=== PATIENT | female | born 1955 | race Caucasian/White ===

== ENCOUNTER 2024-10-07 06:19 | Inpatient (IN) | payer OTHER ==
[~2024-10-07] VITALS: Ht 147.3 cm; Wt 70.5 kg
[2024-10-07] VITALS (12 sets, daily range): BP systolic 101–128; BP diastolic 44–77; PULSE 83–98; RESP 12–19; TEMP 97.4–98.2; O2SAT 92–98
[~2024-10-07 06:19] MED LIST: ALBU108A5 IN; ALPH300C PO; AMLO1TAB22 PO; BECL40AE11 IN; GABA-1250 PO; LEVO125T7 PO; LOVA20TA4 PO; NAPR-746 PO; OMEG100062 PO
[2024-10-07] MEDS: BUPIVACAINE 0.25% INJ 50ML VIAL ONE (06:57)
[2024-10-07] MEDS: BUPIVACAINE W/ EPINEPH 0.5% INJ 50ML MDV IJ ONE (06:57)
[2024-10-07] MEDS: KETOROLAC TROMETH 30 MG/ML 1ML VIAL ONE (06:59)
[2024-10-07] MEDS: BUPIVACAINE 0.5% P/F INJ 10 ML VIAL ONE (07:09)
[2024-10-07] MEDS ORDERED: ONDANSETRON HCL 4 MG/2 ML VIAL ONE (07:10)
[2024-10-07] MEDS ORDERED: fentaNYL CITRATE 100 MCG/2 ML VL ONE (07:10)
[2024-10-07] MEDS ORDERED: GLYCOPYRROLATE 0.2 MG/ML 1ML VIAL ONE (07:10)
[2024-10-07] MEDS ORDERED: MORPHINE SULF PF 5 MG/10 ML VIAL ONE (07:10)
[2024-10-07] MEDS ORDERED: KETOROLAC TROMETH 30 MG/ML 1ML VIAL ONE (07:10)
[2024-10-07] MEDS ORDERED: PROPOFOL 10 MG/ML 20 ML IV ONE (07:10)
[2024-10-07] MEDS ORDERED: MIDAZOLAM HCL 2MG/2ML 2ml VIAL (1mg/ml) ONE (07:11)
[2024-10-07] MEDS ORDERED: HYDROCORTISONE SOD SUCC 100 MG/2ML INJ VIAL ONE (07:11)
[2024-10-07] MEDS: ceFAZolin 2 GM/D5W100ml 100 ML IV ONE (07:37)
[2024-10-07] MEDS: CEFEPIME 1GM/ 50ML 50 ML IV ONE (07:39)
[2024-10-07] MEDS: TRANEXAMIC ACID 20 ML ONE (07:42)
[2024-10-07] MEDS: VANCOMYCIN HCL 1000 MG VL ONE (08:40)
--- NOTE | 2024-10-07 08:42 | DVH ---
CLINICAL INDICATION: SURGERY TECHNIQUE: XY L HIP 1V XRAY Comparison: None FINDINGS/IMPRESSION: : Intraoperative left hip arthroplasty.
[2024-10-07] MEDS: NALBUPHINE HCL 10 MG/1ml INJECTION SUBCUT ONE (09:15)
[2024-10-07] MEDS ORDERED: ONDANSETRON HCL 4 MG/2 ML VIAL IV PRN ×2 (09:15)
[2024-10-07] MEDS ORDERED: DexAMETHasone SOD PHOS 10MG/1ML VIAL INJ IV PRN (09:15)
[2024-10-07] MEDS ORDERED: NALOXONE HCL 0.4 MG/ML VIAL IV PRN (09:15)
[2024-10-07] MEDS ORDERED: KETOROLAC TROMETH 30 MG/ML 1ML VIAL IV PRN (09:15)
[2024-10-07] MEDS ORDERED: diphenhdrAMINE HCL 50 MG/1 ML VL IV PRN (09:15)
--- NOTE | 2024-10-07 09:15 | DVHOP2 ---
Operative Report - 2 Report Details Date: 10/07/24 Preop Diagnosis: Left hip degenerative arthritis Postop Diagnosis: Left hip degenerative arthritis Surgeon: Yogi Menezes MD Anesthesiologist: Sunny Anesthesia: Regional Drains: Aba closed wound suction Implant: DonJoy origin stem size 10, minus four neck length, size 32 ceramic head, 46 acetabular shell with flat liner polyethylene Consent: The patient was informed of the risks and benefits of the procedure. These include but are not limited to complications of anesthesia, postoperative infection, incomplete relief of symptoms, recurrence of symptoms, damage to blood vessels, nerves and tendons, deep venous thrombosis, pulmonary embolism and possible need for repeat surgery in the future. Complications: None Estimated Blood Loss: 200 cc Fluids: See anesthesia record Findings: Severe loss of range of motion with severe flexion contracture left hip, osteophytes, denuded cartilage with eburnated bone Indications for Surgery: Left hip degenerative arthritis with severe pain and functional impairment despite adequate nonoperative management Name of Procedure Performed Left total hip arthroplasty Procedure Details Procedure Details: The patient was brought to the operating room and given spinal anesthetic with adequate analgesia obtained. The patient was positioned lateral decubitus with the operative side up, stabilized with hip positioners. Axillary roll applied and lower extremities well-padded. Preop patient received IV Ancef, cefepime and IV tranexamic acid. Surgical timeout was performed verifying patient, laterality and procedure. The hip and lower extremity were prepped and draped in sterile fashion. Incision was made over the greater trochanter. Subcutaneous dissection and hemostasis were performed with Bovie and aqua mantis. I identified the fascia which was incised with Bovie and Charnley retr actor inserted. I identified the gluteus medius that was split at the junction of its anterior and middle thirds with Bovie then incised off the anterior greater trochanter. I incised the anterior gluteus minimus which was elevated off the capsule. I elevated the reflected head of the rectus. I then performed anterior capsulectomy with Bovie. I extended capsular incision posterior medially and superior laterally. The head was dislocated. Femoral neck cut was made with saw and head removed. Head diameter was calipered on the back table. I adjusted retractors to expose the acetabulum. I circumferentially removed labral tissue with Bovie. I removed foveal tissue with Bovie, curette and rongeur. I then began reaming sequentially paying attention to inclination and version as I went. I trialed which was stable so acetabular implant was brought into the field and tapped into the acetabulum with good fixation achieved. I then brought up the flat liner which was spun to make sure there was no soft tissue entrapment then tapped in and stability verified. I then brought my attention to the proximal femur. The leg was placed in the sterile bag anteriorly. I cleaned up soft tissue at the greater trochanter shoulder with Bovie. I then used a rongeur to clip the lateral neck. I then used a box osteotome, canal finder and lateralizing rasp. I sequentially broached to size 10. Hip was stable on trialing. Intraoperative AP pelvis x-ray was obtained to verify length, offset and implant size. The hip was dislocated. I went down a size and broach and buried it then buried the size 10 and was able to short in the neck length and this way based on estimated length from the x-ray. I then used a calcar planer. Broach was removed and I tapped in the stem with e xcellent fixation achieved. I again trialed and decided on the minus four neck length I cleaned and dried the Ribeiro taper and tapped on the head and reduced the hip which was stable on testing. I irrigated with antibacterial irrigant. I placed a 2 grams of vancomycin in the deep and superficial wound. I repaired the minimus and medius to the anterior greater trochanter with #[5] FiberWire in running fashion . I oversewed the repair with 0 Vicryl. I repaired the fascia with #1 Ethibond interrupted [id number]. Deep subcutaneous tissue was closed with 0 Vicryl. Superficial subcutaneous tissue was closed with 2-0 Vicryl. The skin was closed with santos. I then applied the Aba closed wound suction. Patient tolerated the procedure well and was brought to the recovery room in stable condition. Condition Stable Disposition Still a Patient YOGI MENEZES MD Oct 07, 2024 09:15
--- NOTE | 2024-10-07 09:42 | DVH ---
CLINICAL INDICATION: postop TECHNIQUE: XY PELVIS AP Comparison: None FINDINGS/IMPRESSION: : There is no evidence of acute fracture or dislocation. Left hip arthroplasty. Severe degenerative changes of the right hip.
[2024-10-07] MEDS: ALBUTEROL SULF HFA 90MCG INH 200DOSE IN SCH (10:00)
[2024-10-07] MEDS: amLODIPine BESYLATE 5 MG TAB PO SCH (10:00)
[2024-10-07] MEDS ORDERED: oxyCODONE HCL 5MG TAB PO PRN (11:30)
[2024-10-07] MEDS ORDERED: KETOROLAC TROMETH 30 MG/ML 1ML VIAL IV SCH (12:00)
[2024-10-07] MEDS ORDERED: KETAMINE 50mg/ML 1ml syringe IV ONE (12:53)
[2024-10-07] MEDS: HYDROCORTISONE SOD SUCC 100 MG/2ML INJ VIAL IV SCH (13:53)
[2024-10-07] MEDS: ACETAMINOPHEN 325 MG TAB PO SCH (13:53)
[2024-10-07] MEDS: ceFAZolin 2 GM/D5W50ml 50 ML IV SCH (13:53)
[2024-10-07] MEDS: SODIUM CHLORIDE 0.9% 1,000 ML IV SCH (13:56)
[2024-10-07] MEDS: GABAPENTIN 300 MG CAP PO SCH (14:15)
[2024-10-07] MEDS ORDERED: ALBUTEROL SULF 2.5 MG/0.5ML(0.5%) NEB SOLN NEB PRN (15:15)
[2024-10-08] VITALS (17 sets, daily range): BP systolic 98–132; BP diastolic 60–74; PULSE 85–116; RESP 16–18; TEMP 98–99.3; O2SAT 91–100
[2024-10-08] MEDS: LEVOTHYROXINE SODIUM 25 MCG TAB PO SCH (06:53)
[2024-10-08] MEDS: LEVOTHYROXINE SODIUM 100 MCG TAB PO SCH (06:53)
[2024-10-08] MEDS ORDERED: PATIENTS OWN MEDICATION (Levothyroxine Sodium 125 MCG) PO SCH (07:00)
[2024-10-08 07:16] LABS: Basophils # (auto) 0 10 ^3/uL (0-0.2); Basophils % (auto) 0.2 % (0.0-2.0); Eosinophils # (auto) 0 10 ^3/uL (0-0.8); Lymphocytes # (auto) 0.6 10 ^3/uL (0.4-5.4); Lymphocytes % (auto) 5.3 % (10.0-50.0); Mean Corpuscular Hemoglobin 28.4 pg (28.0-32.0); Mean Corpuscular Hgb Conc. 34.2 g/dL (32.0-36.0); Monocytes # (auto) 0.6 10 ^3/uL (0-1.3); Monocytes % (auto) 5.9 % (0.0-12.0); Neutrophils # (auto) 9.5 10 ^3/uL (1.6-8.6); Neutrophils % (auto) 88.6 % (37.0-80.0); Platelet Count (auto) 196 10^3/uL (140-450); Red Blood Cells 2.41 10^6/uL (4.0-5.20); Red Cell Distribution Width 13.4 % (11.8-14.3); White Blood Cell 10.8 10^3/uL (4.4-10.8)
[2024-10-08 07:18] LABS: Chloride 107 mmol/L (98-107); Potassium 3.9 mmol/L (3.5-5.1); Sodium 139 mmol/L (136-145)
[2024-10-08 07:19] LABS: Anion Gap 7 (5-15); Carbon Dioxide 25 mmol/L (20-31)
[2024-10-08 07:22] LABS: Hemoglobin 6.8 g/dL (12.2-16.2)
[2024-10-08 07:23] LABS: Calcium 7.9 mg/dL (8.7-10.4)
[2024-10-08 07:24] LABS: BUN/Creatinine Ratio 23.6 (10.0-20.0); Blood Urea Nitrogen 17 mg/dL (9-23)
[2024-10-08 07:26] LABS: Glucose 130 mg/dL (74-106)
[2024-10-08] MEDS: oxyCODONE HCL 5MG TAB PO PRN (09:51)
[2024-10-08 10:12] LABS: Basophils # (auto) 0 10 ^3/uL (0-0.2); Basophils % (auto) 0.2 % (0.0-2.0); Eosinophils # (auto) 0 10 ^3/uL (0-0.8); Hemoglobin 7.7 g/dL (12.2-16.2); Mean Corpuscular Volume 83.4 fL (80.0-100.0); Red Cell Distribution Width 13.5 % (11.8-14.3); White Blood Cell 13.2 10^3/uL (4.4-10.8)
[2024-10-08 10:15] LABS: Hematocrit 23.6 % (36.0-46.0); Lymphocytes # (auto) 0.6 10 ^3/uL (0.4-5.4); Lymphocytes % (auto) 4.2 % (10.0-50.0); Mean Corpuscular Hemoglobin 27.2 pg (28.0-32.0); Mean Corpuscular Hgb Conc. 32.6 g/dL (32.0-36.0); Monocytes # (auto) 0.4 10 ^3/uL (0-1.3); Monocytes % (auto) 2.7 % (0.0-12.0); Neutrophils # (auto) 12.3 10 ^3/uL (1.6-8.6); Neutrophils % (auto) 92.9 % (37.0-80.0); Platelet Count (auto) 247 10^3/uL (140-450); Red Blood Cells 2.83 10^6/uL (4.0-5.20)
--- NOTE | 2024-10-08 12:34 | DVHPN2 ---
Progress Note - Dictate Date Seen: Oct 08, 2024 Medical Necessity Reason Pt with a Central, PICC or Fol: No Subjective Patient ambulated with physical therapy. No unusual postop complaints. vital signs Vital Sign Date Time Temp Pulse Resp B/P (MAP) Pulse Ox O2 Delivery O2 Flow Rate FiO2 10/08/24 09:45 124/72 10/08/24 09:00 98.0 92 16 100 98.0 10/08/24 08:15 Nasal Cannula* 2 28 Total Intake and Output 10/07/24 10/07/24 10/08/24 15:00 23:00 07:00 Intake Total 170 ml 1000 ml 600 ml Balance 170 ml 1000 ml 600 ml medications Current Medications Medications Dose Ordered Sig/Keily Route Start Time Stop Time Status Last Admin Dose Admin Amlodipine Besylate 5 mg DAILY PO 10/07/24 10:00 10/08/24 09:45 5 MG Gabapentin 300 mg TID PO 10/07/24 14:00 10/08/24 05:45 300 MG Apixaban 2.5 mg BID PO 10/08/24 10:00 11/12/24 09:59 Sodium Chloride 1,000 ml @ 125 mls/hr Q8H IV 10/07/24 11:30 10/07/24 13:56 125 MLS/HR Acetaminophen 650 mg Q6HP PO 10/07/24 12:00 10/08/24 05:45 650 MG Ondansetron HCl 4 mg Q4HP PRN IV 10/07/24 09:15 Oxycodone HCl 5 mg Q4HP PRN PO 10/07/24 11:30 10/08/24 09:51 5 MG Oxycodone HCl 10 mg Q4HP PRN PO 10/07/24 11:30 Diphenhydramine HCl 12.5 mg Q4HP PRN IV 10/07/24 09:15 Levothyroxine Sodium 100 mcg QAM PO 10/08/24 07:00 10/08/24 06:53 100 MCG Levothyroxine Sodium 25 mcg QAM PO 10/08/24 07:00 10/08/24 06:53 25 MCG Albuterol 2.5 mg Q6HPRN PRN NEB 10/07/24 15:15 objective Alert and oriented x4 Dressing dry and intact No calf or pedal edema Distal neurovascularly intact laboratory and microbiology Laboratory Tests 10/08/24 09:28 10/08/24 05:50 Test 10/08/24 05:50 Range/Units Serum Glucose 130 H 74-106 mg/dL Assessment/Plan Postop day 1. s/p left total hip arthroplasty Acute expected postop blood loss anemia Plan: Weight-bearing as tolerated with walker. Continue physical therapy. We will monitor hemoglobin for another night. Plan discussed with: Patient, Spouse YOGI MENEZES MD Oct 08, 2024 12:34
[2024-10-08] MEDS: APIXABAN 2.5 MG TAB PO SCH (14:21)
[2024-10-09] VITALS (15 sets, daily range): BP systolic 114–164; BP diastolic 59–79; PULSE 98–115; RESP 16–20; TEMP 97.4–99; O2SAT 90–99
[2024-10-09 07:09] LABS: Basophils # (auto) 0 10 ^3/uL (0-0.2); Basophils % (auto) 0.4 % (0.0-2.0); Eosinophils # (auto) 0.1 10 ^3/uL (0-0.8); Mean Corpuscular Volume 84.4 fL (80.0-100.0); Monocytes # (auto) 0.7 10 ^3/uL (0-1.3); Monocytes % (auto) 7.3 % (0.0-12.0); Red Cell Distribution Width 13.7 % (11.8-14.3)
[2024-10-09 07:13] LABS: Eosinophils % (auto) 0.9 % (0.0-7.0); Hematocrit 20.3 % (36.0-46.0); Lymphocytes # (auto) 0.8 10 ^3/uL (0.4-5.4); Lymphocytes % (auto) 8.2 % (10.0-50.0); Mean Corpuscular Hgb Conc. 33.2 g/dL (32.0-36.0); Neutrophils % (auto) 83.2 % (37.0-80.0); Nucleated Red Blood Cells % 0.1 %; Platelet Count (auto) 202 10^3/uL (140-450); White Blood Cell 9.6 10^3/uL (4.4-10.8)
[2024-10-09 07:20] LABS: Hemoglobin 6.7 g/dL (12.2-16.2)
[2024-10-09 07:54] LABS: Hypochromia Slight; Platelet Estimate Adequate
--- NOTE | 2024-10-09 12:11 | DVHPN2 ---
Progress Note - Dictate Date Seen: Oct 09, 2024 Medical Necessity Reason Pt with a Central, PICC or Fol: No Subjective No new complaints though patient does feel weak and tired. vital signs Vital Sign Date Time Temp Pulse Resp B/P (MAP) Pulse Ox O2 Delivery O2 Flow Rate FiO2 10/09/24 11:57 98.0 110 20 135/76 98.0 10/09/24 09:39 99 Room Air 0.0 10/09/24 09:39 21 Total Intake and Output 10/08/24 10/08/24 10/09/24 15:00 23:00 07:00 Intake Total 800 ml 700 ml Balance 800 ml 700 ml medications Current Medications Medications Dose Ordered Sig/Keily Route Start Time Stop Time Status Last Admin Dose Admin Amlodipine Besylate 5 mg DAILY PO 10/07/24 10:00 10/09/24 09:52 5 MG Gabapentin 300 mg TID PO 10/07/24 14:00 10/09/24 06:00 300 MG Apixaban 2.5 mg BID PO 10/08/24 10:00 11/12/24 09:59 10/09/24 09:48 2.5 MG Sodium Chloride 1,000 ml @ 125 mls/hr Q8H IV 10/07/24 11:30 10/08/24 19:43 125 MLS/HR Acetaminophen 650 mg Q6HP PO 10/07/24 12:00 10/09/24 05:32 650 MG Ondansetron HCl 4 mg Q4HP PRN IV 10/07/24 09:15 Oxycodone HCl 5 mg Q4HP PRN PO 10/07/24 11:30 10/09/24 09:52 5 MG Oxycodone HCl 10 mg Q4HP PRN PO 10/07/24 11:30 Diphenhydramine HCl 12.5 mg Q4HP PRN IV 10/07/24 09:15 Levothyroxine Sodium 100 mcg QAM PO 10/08/24 07:00 10/09/24 06:46 100 MCG Levothyroxine Sodium 25 mcg QAM PO 10/08/24 07:00 10/09/24 06:46 25 MCG Albuterol 2.5 mg Q6HPRN PRN NEB 10/07/24 15:15 objective Alert and oriented x4 Dressing dry and intact No calf or pedal edema Distal neurovascularly intact laboratory and microbiology Laboratory Tests 10/09/24 06:40 10/08/24 05:50 Test 10/08/24 05:50 Range/Units Serum Glucose 130 H 74-106 mg/dL Assessment/Plan Postop day 1. s/p left total hip arthroplasty Acute expected postop blood loss anemia Tachycardia related to hypovolemia Plan: Weight-bearing as tolerated with walker. Continue physical therapy. And shoes 1 unit packed red blood cells and recheck CBC in a.m.. Anticipate discharge tomorrow if hemoglobin stable and vitals stable. Plan discussed with: Patient, Spouse YOGI MENEZES MD Oct 09, 2024 12:11
--- NOTE | 2024-10-09 13:11 | DVHINCON2 ---
Date Seen: Oct 09, 2024 Referring Physician Orthopedic surgeon. Reason for Consultation Medical management. History of Present Illness 69-year-old female with a known history of hypertension, dyslipidemia, asthma, hypothyroidism, chronic degenerative joint disease of the left hip who was br ought in by Orthopedics for elective procedure for left hip degenerative joint disease status post left total hip arthroplasty postop day 3. Patient does have known history of chronic NSAID use takes ibuprofen on two to 3 times a day for left hip pain. Patient's hospital course was eventful for acute on chronic anemia with a hemoglobin less than seven. Patient is currently getting 1 unit of packed RBC. Patient denies any hematemesis hematochezia melena dysuria hematuria. Denies any recent EGD or colonoscopy. Past Medical History Hypertension Dyslipidemia Hypothyroidism Chronic asthma Degenerative joint disease of the left hip. Past Surgical History Status post left total hip arthroplasty. Family History: Cardiovascular disease Cerebrovascular accident (CVA) G8 FATHER Hypertension G8 MOTHER G8 FATHER Allergies: Coded Allergies: Nitrofurantoin (Verified Allergy, Intermediate, headache, 10/06/24) Penicillin V (Verified Allergy, Unknown, 10/07/24) Sulfa Antibiotics (Verified Allergy, Unknown, 10/07/24) Home Meds Reported Medications Albuterol Sulfate (Albuterol Sulfate Hfa) 108 Mcg/Act Aer, 108 MCG IN, AER 10/06/24 Beclomethasone Dipropionate (Qvar Redihaler) 40 Mcg/Act Aer, 40 MCG IN, AER 10/06/24 Murphys-3 Fatty Acids (Fish Oil) 1,000 Mg Cap, 1200 MG PO, CAP 10/06/24 Lipoic Acid (Thioctic Acid) (Alpha Lipoic Acid) 300 Mg Cap, 300 MG PO, CAP 10/06/24 Gabapentin (Gabapentin) 300 Mg Cap, 300 MG PO for 30 Days, MG 10/06/24 Levothyroxine Sodium (Levothyroxine Sodium) 125 Mcg Tab, 125 MCG PO QAM for 30 Days, MCG 10/06/24 Lovastatin (Lovastatin) 20 Mg Tab, 10 MG PO, TAB 10/06/24 Amlodipine Besylate (Amlodipine Besylate) 5 Mg Tab, 5 MG PO DAILY for 30 Days, MG 10/06/24 Naproxen (Naproxen) 500 Mg Tab, 500 MG PO, TAB 10/06/24 Review of Systems Twelve review of system are negative besides mentioned above. Vital Signs Vital Signs Date Time Temp Pulse Resp B/P (MAP) Pulse Ox O2 Delivery O2 Flow Rate FiO2 10/09/24 12:20 97.4 115 20 144/79 97.4 10/09/24 09:39 99 Room Air 0.0 10/09/24 09:39 21 Physical Exam HEENT pupils are reactive Neck is supple CV is S1-S2 regular rate and rhythm Respiratory bilateral clear GI positive bowel sound Extremity no edema [employer] no motor deficit Labs/Diagnostic Data Labs Test 10/09/24 06:40 10/08/24 05:50 Range/Units White Blood Count 9.6 # 4.4-10.8 10^3/uL Red Blood Count 2.40 L 4.0-5.20 10^6/uL Hemoglobin 6.7 *L 12.2-16.2 g/dL Hematocrit 20.3 #L 36.0-46.0 % Mean Corpuscular Volume 84.4 80.0-100.0 fL Mean Corpuscular Hemoglobin 28.0 28.0-32.0 pg Mean Corpuscular Hemoglobin Concent 33.2 32.0-36.0 g/dL Red Cell Distribution Width 13.7 11.8-14.3 % Platelet Count 202 140-450 10^3/uL Mean Platelet Volume 7.9 6.9-10.8 fL Neutrophils (%) (Auto) 83.2 H 37.0-80.0 % Lymphocytes (%) (Auto) 8.2 L 10.0-50.0 % Monocytes (%) (Auto) 7.3 0.0-12.0 % Eosinophils (%) (Auto) 0.9 0.0-7.0 % Basophils (%) (Auto) 0.4 0.0-2.0 % Neutrophils # (Auto) 8.0 1.6-8.6 10 ^3/uL Lymphocytes # (Auto) 0.8 0.4-5.4 10 ^3/uL Monocytes # (Auto) 0.7 0-1.3 10 ^3/uL Eosinophils # (Auto) 0.1 0-0.8 10 ^3/uL Basophils # (Auto) 0 0-0.2 10 ^3/uL Nucleated Red Blood Cells 0.1 % Platelet Estimate Adequate Hypochromasia (manual) Slight Sodium Level 139 136-145 mmol/L Potassium Level 3.9 3.5-5.1 mmol/L Chloride Level 107 98-107 mmol/L Carbon Dioxide Level 25 20-31 mmol/L Anion Gap 7 5-15 Blood Urea Nitrogen 17 9-23 mg/dL Creatinine 0.72 0.550-1.02 mg/dL Glomerular Filtration Rate Calc 92 >90 mL/min BUN/Creatinine Ratio 23.6 H 10.0-20.0 Serum Glucose 130 H 74-106 mg/dL Calcium Level 7.9 L 8.7-10.4 mg/dL Assessment 69-year-old female with a known history of hypertension, dyslipidemia, hyp othyroidism, chronic asthma, initially presented to the hospital for elective procedure. 1. Acute postop anemia expected, status post 1 unit of packed RBC 2. Chronic NSAID use 3. Hypertension 4. Dyslipidemia 5. Hypothyroidism 6. Chronic asthma 7. Left hip degenerative joint disease status post left MICHELL -transfuse 1 unit of packed RBC, recheck H and H 1 hour after transfusion, gudelia liang refuses to get inpatient workup and she requesting to go home. -physical therapy evaluation and treatment, DME has been ordered, discharge plan per Orthopedics. Plan discussed with: Patient Date of Service: Oct 09, 2024 Billing Provider: ALEXIA RED MD Common Visit Codes: NOT BILLABLE ALEXIA RED MD Oct 09, 2024 13:11
[2024-10-09 15:37] LABS: Hematocrit 24.7 % (36.0-46.0); Hemoglobin 8.3 g/dL (12.2-16.2)
[2024-10-10 01:00] VITALS: BP 107/65; PULSE 84; RESP 19; TEMP 98.9; O2SAT 95
[2024-10-10 05:00] VITALS: BP 121/66; PULSE 99; RESP 18; TEMP 98.7; O2SAT 97
[2024-10-10 07:12] LABS: Potassium 3.8 mmol/L (3.5-5.1); Sodium 141 mmol/L (136-145)
[2024-10-10 07:13] LABS: Anion Gap 7 (5-15); Carbon Dioxide 26 mmol/L (20-31)
[2024-10-10 07:14] VITALS: O2SAT 92
[2024-10-10 07:15] LABS: Eosinophils # (auto) 0.2 10 ^3/uL (0-0.8); Hematocrit 24.6 % (36.0-46.0); Hemoglobin 8.4 g/dL (12.2-16.2); Monocytes # (auto) 0.7 10 ^3/uL (0-1.3)
[2024-10-10 07:17] LABS: Basophils # (auto) 0 10 ^3/uL (0-0.2); Basophils % (auto) 0.5 % (0.0-2.0); Eosinophils % (auto) 1.8 % (0.0-7.0); Lymphocytes % (auto) 10.8 % (10.0-50.0); Mean Corpuscular Hemoglobin 28.1 pg (28.0-32.0); Mean Corpuscular Hgb Conc. 34.1 g/dL (32.0-36.0); Mean Corpuscular Volume 82.6 fL (80.0-100.0); Neutrophils # (auto) 7.1 10 ^3/uL (1.6-8.6); Neutrophils % (auto) 78.9 % (37.0-80.0); Platelet Count (auto) 185 10^3/uL (140-450); Red Blood Cells 2.98 10^6/uL (4.0-5.20); Red Cell Distribution Width 13.5 % (11.8-14.3)
[2024-10-10 07:18] LABS: BUN/Creatinine Ratio 16.1 (10.0-20.0); Blood Urea Nitrogen 10 mg/dL (9-23)
[2024-10-10 07:22] LABS: Chloride 108 mmol/L (98-107); Glucose 112 mg/dL (74-106)
[2024-10-10 07:23] LABS: Calcium 7.7 mg/dL (8.7-10.4)
[2024-10-10 08:00] VITALS: PULSE 94
[2024-10-10 09:00] VITALS: BP 134/68; PULSE 100; RESP 18; TEMP 97.9; O2SAT 91
--- NOTE | 2024-10-10 11:17 | DVHPN2 ---
Progress Note - Dictate Date Seen: Oct 10, 2024 Medical Necessity Reason Pt with a Central, PICC or Fol: No Subjective No new complaints. vital signs Vital Sign Date Time Temp Pulse Resp B/P (MAP) Pulse Ox O2 Delivery O2 Flow Rate FiO2 10/10/24 09:19 134/68 10/10/24 09:00 97.9 100 18 91 97.9 10/10/24 08:00 Room Air* 0 21 Total Intake and Output 10/09/24 10/09/24 10/10/24 15:00 23:00 07:00 Intake Total 300 ml 910 ml 600 ml Balance 300 ml 910 ml 600 ml medications Current Medications Medications Dose Ordered Sig/Keily Route Start Time Stop Time Status Last Admin Dose Admin Amlodipine Besylate 5 mg DAILY PO 10/07/24 10:00 10/10/24 09:19 5 MG Gabapentin 300 mg TID PO 10/07/24 14:00 10/10/24 05:35 300 MG Apixaban 2.5 mg BID PO 10/08/24 10:00 11/12/24 09:59 10/10/24 09:19 2.5 MG Sodium Chloride 1,000 ml @ 125 mls/hr Q8H IV 10/07/24 11:30 10/09/24 19:30 125 MLS/HR Acetaminophen 650 mg Q6HP PO 10/07/24 12:00 10/10/24 05:35 650 MG Ondansetron HCl 4 mg Q4HP PRN IV 10/07/24 09:15 Oxycodone HCl 5 mg Q4HP PRN PO 10/07/24 11:30 10/10/24 03:55 5 MG Oxycodone HCl 10 mg Q4HP PRN PO 10/07/24 11:30 Diphenhydramine HCl 12.5 mg Q4HP PRN IV 10/07/24 09:15 Levothyroxine Sodium 100 mcg QAM PO 10/08/24 07:00 10/10/24 05:35 100 MCG Levothyroxine Sodium 25 mcg QAM PO 10/08/24 07:00 10/10/24 05:35 25 MCG Albuterol 2.5 mg Q6HPRN PRN NEB 10/07/24 15:15 objective Alert and oriented x4 Dressing dry and intact No calf or pedal edema Distal neurovascularly intact laboratory and microbiology Laboratory Tests 10/10/24 06:19 Test 10/10/24 06:19 Range/Units Serum Glucose 112 H 74-106 mg/dL Assessment/Plan Postop day 3. s/p left total hip arthroplasty Acute expected postop blood loss anemia Tachycardia related to hypovolemia Plan: Weight-bearing as tolerated with walker. Continue physical therapy. discharge home as per orders Plan discussed with: Patient, Spouse YOGI MENEZES MD Oct 10, 2024 11:17
--- NOTE | 2024-10-10 11:19 | DVHDS2 ---
Discharge Summary Date of Admission Oct 07, 2024 at 09:24 Date of Discharge: Oct 10, 2024 Admitting Diagnosis left hip djd Wounds: left hip Labs/Diagnostic Data: Laboratory Results Test 10/10/24 06:19 10/09/24 06:40 White Blood Count 9.0 10^3/uL (4.4-10.8) Red Blood Count 2.98 10^6/uL (4.0-5.20) Hemoglobin 8.4 g/dL (12.2-16.2) Hematocrit 24.6 % (36.0-46.0) Mean Corpuscular Volume 82.6 fL (80.0-100.0) Mean Corpuscular Hemoglobin 28.1 pg (28.0-32.0) Mean Corpuscular Hemoglobin Concent 34.1 g/dL (32.0-36.0) Red Cell Distribution Width 13.5 % (11.8-14.3) Platelet Count 185 10^3/uL (140-450) Mean Platelet Volume 8.0 fL (6.9-10.8) Neutrophils (%) (Auto) 78.9 % (37.0-80.0) Lymphocytes (%) (Auto) 10.8 % (10.0-50.0) Monocytes (%) (Auto) 8.0 % (0.0-12.0) Eosinophils (%) (Auto) 1.8 % (0.0-7.0) Basophils (%) (Auto) 0.5 % (0.0-2.0) Neutrophils # (Auto) 7.1 10 ^3/uL (1.6-8.6) Lymphocytes # (Auto) 1.0 10 ^3/uL (0.4-5.4) Monocytes # (Auto) 0.7 10 ^3/uL (0-1.3) Eosinophils # (Auto) 0.2 10 ^3/uL (0-0.8) Basophils # (Auto) 0 10 ^3/uL (0-0.2) Nucleated Red Blood Cells 0.0 % Sodium Level 141 mmol/L (136-145) Potassium Level 3.8 mmol/L (3.5-5.1) Chloride Level 108 mmol/L (98-107) Carbon Dioxide Level 26 mmol/L (20-31) Anion Gap 7 (5-15) Blood Urea Nitrogen 10 mg/dL (9-23) Creatinine 0.62 mg/dL (0.550-1.02) Glomerular Filtration Rate Calc 98 mL/min (>90) BUN/Creatinine Ratio 16.1 (10.0-20.0) Serum Glucose 112 mg/dL (74-106) Calcium Level 7.7 mg/dL (8.7-10.4) Platelet Estimate Adequate Hypochromasia (manual) Slight Other Laboratory Tests 10/10/24 06:19 Brief Hx & Hospital Course: Patient underwent left total hip arthroplasty on the date of admission without complications. Postoperatively she was anemic with some tachycardia so she was given 1 unit packed red blood cells and symptoms improved. She has been ambulating with physical therapy and pain is well controlled with p.o. meds and is therefore discharged to home in stable condition. Operations or Procedures Left total hip arthroplasty Condition at Discharge: Stable Final Diagnosis/Problems List Left hip degenerative arthritis s/p total hip arthroplasty Secondary Diagnosis: Acute expected postop blood loss anemia Discharge Disposition: Home Discharge Instruct/Medications Diet: Regular Activity: See Comment Activity comment: WBAT with walker Follow Up/Referral: 10-[address] Menezes Medications: norco and eliquis sent [facility] continue home meds excdedpt no naproxen Discharge Statement: "Patient was advised to return to the ER or call 911 if any headaches, dizziness, shortness of breath, chest pain, abdominal pain, bleeding, fevers, or worsening of medical condition. Patient was counseled about treatment plan, medications, possible side effects, patientverbalized understanding. All questions were answered to the best of my ability. This discharge took greater then 30 minutes in planning, reviewing documentation, counseling the patient, and discussing with other team members." DME: Diagnosis: total hip ASSESSMENT ASSESSMENT Assessment Left hip degenerative arthritis s/p total hip arthroplasty YOGI MENEZES MD Oct 10, 2024 11:19
== END 2024-10-10 12:40 | disposition home or self-care (01) | DRG 470 ==
LOC: SUR 06:19 → TELE 09:24 → TELE-WESTW 10:32
PROVIDERS: ADMIT Orthopaedic Surgery; ATTEND Internal Medicine
PROC: 0SRB04Z Replacement of Left Hip Joint with Ceramic on Polyethylene Synthetic Substitute, Open Approach (ICD-10-PCS; principal; 2024-10-07 07:21)
PROC: 30233N1 Transfusion of Nonautologous Red Blood Cells into Peripheral Vein, Percutaneous Approach (ICD-10-PCS; 2024-10-09)
DX: M16.12 Unilateral primary osteoarthritis, left hip (principal); D62 Acute posthemorrhagic anemia; I10 Essential (primary) hypertension; J45.909 Unspecified asthma, uncomplicated; E03.9 Hypothyroidism, unspecified; E78.5 Hyperlipidemia, unspecified; E86.1 Hypovolemia; Z82.3 Family history of stroke; Z79.1 Long term (current) use of non-steroidal anti-inflammatories (NSAID); Z82.49 Family history of ischemic heart disease and other diseases of the circulatory system; Z88.0 Allergy status to penicillin; Z88.2 Allergy status to sulfonamides
CPT/HCPCS: 36415; 72170; 73501; 80048; 85014; 85018; 85025; 86850; 86900; 86901; 86920; 97110; 97116; 97163; 97530; G0378; J1885; J2250; J2405; J2704; J3490